=== PATIENT | female | born 1995 | race Caucasian/White ===

== ENCOUNTER 2022-01-05 06:17 | Inpatient (IN) ==
[2022-01-05] MEDS ORDERED: PITOCIN ONE (06:30)
[2022-01-05] MEDS ORDERED: D5 1/2 NS 1,000 ML 1,000 ML IV ONE (06:31)
[2022-01-05] MEDS ORDERED: BETADINE SOLN ONE (06:31)
[2022-01-05] MEDS ORDERED: D5 LR + PITOCIN 10 UNITS/L 10 UNITS/1,000 ML BAG IV ONE (06:32)
[2022-01-05] MEDS ORDERED: D5 1/2 NS 1,000 mL + PITOCIN 20 UNITS/L IV 20 UNITS/1,000 ML BAG IV ONE (06:33)
--- NOTE | 2022-01-05 06:56 | DR.OB ---
OB Quick Note - Assessment/Plan Assessment/Plan: L&D 01/05/22 at 6:50am S-No complaint. O-Afebrile,VSS [id number] with good LTV, +accel, no decel. CTX=irregular, mild by palpation CVX=2cm/50%/-1/VTX AROM with clear fluid. IUPC and FSE placed. A-IUP at 37 1/7 weeks for induction CHTN +RPR--FTA-RAVI pending P-Begin pitocin induction Anticipate Notify nursery about +RPR
[2022-01-05] MEDS ORDERED: PHENERGAN INJ 25 MG IM PRN ×2 (07:07→13:20)
[2022-01-05] MEDS ORDERED: PITOCIN IVP ONE (07:07)
[2022-01-05] MEDS ORDERED: D5 1/2 NS 1,000 ML 1,000 ML IV SCH (07:07)
[2022-01-05] MEDS ORDERED: NUBAIN INJ 200 MG VIAL MULTIDOSE IVP PRN (07:07)
[2022-01-05] MEDS ORDERED: REGLAN INJ 10 MG VIAL IVP PRN (07:07)
[2022-01-05] MEDS ORDERED: MORPHINE SULFATE INJ 2 MG INJ IVP PRN (07:07)
[2022-01-05] MEDS ORDERED: D5 LR + PITOCIN 10 UNITS/L 10 UNITS/1,000 ML BAG IV PRN (07:07)
[2022-01-05] MEDS ORDERED: STADOL INJ IVP PRN (07:10)
[2022-01-05 07:48] LABS: URIC ACID 3.6 mg/dL (2.6-6.0)
[2022-01-05] MEDS ORDERED: ZOFRAN INJ 4 MG VIAL IVP ONE (09:00)
[2022-01-05] MEDS ORDERED: LR 1,000 ML IV 1,000 ML IV ONE (09:02)
[2022-01-05] MEDS ORDERED: FENTANYL VIAL INJ 100 mcg ONE (09:03)
[2022-01-05] MEDS ORDERED: ZOFRAN INJ 4 MG VIAL ONE (09:03)
[2022-01-05] MEDS ORDERED: NAROPIN 0.2% 400 MG/200 ML BAG 200 ML ONE (09:03)
--- NOTE | 2022-01-05 11:48 | DR.OB ---
OB Quick Note - Assessment/Plan Assessment/Plan: L&D 01/05/22 at 11:45am Pitocin=12mu/min. S-No complaint. s/p epidural. O-Afebrile,VSS [id number] with good LTV, +accel, no decel. CTX=q 1 1/2 to 2 min., about 45-55mmHg CVX=5cm/75%/0/VTX A-IUP at 37 1/7 weeks for induction CHTN P-Cont. pitocin induction Anticipate
[2022-01-05] MEDS ORDERED: REGLAN INJ 10 MG VIAL ONE (12:19)
[2022-01-05] MEDS ORDERED: TYLENOL 500 MG TAB EXTRA STRENGTH PO PRN (12:26)
[2022-01-05] MEDS ORDERED: TYLENOL 500 MG TAB EXTRA STRENGTH PO ONE (12:30)
--- NOTE | 2022-01-05 13:25 | DR.OB ---
OB Quick Note - Assessment/Plan Assessment/Plan: Delivery Note [employer] 01/05/22 at 13:12 Patient complete and pushing. Head delivered by over intact perineum. No nuchal cord. Nose and mouth bulb suctioned. Body delivered over intact perineum. Cord clamped x 2 and cut. handed to attendant. Cord sent for gases. Placenta delivered spontaneously / intact / 3 vessel cord. No CVX / vaginal / perineal tears noted. Viable female infant, VTX/OA, wt=5'10" and 9/9, stable to NBN. Mother stable to RR. XED=407ks.
[2022-01-05] MEDS: D5 1/2 NS 1,000 ML 1,000 ML with PITOCIN 20 UNITS IV SCH ×4 (14:15→23:07)
[2022-01-05] MEDS ORDERED: ADACEL or BOOSTRIX TDaP VACCINE IM ONE ×2 (14:24→22:31)
[2022-01-05] MEDS ORDERED: MILK OF MAGNESIA PO PRN (14:24)
[2022-01-05] MEDS ORDERED: DERMOPLAST PAIN RELIEF SPRAY TOP PRN (14:24)
[2022-01-05] MEDS ORDERED: AMBIEN PO PRN (14:24)
[2022-01-05] MEDS: NORMODYNE TAB 100 MG PO SCH (22:40)
[2022-01-06] MEDS: MOTRIN TAB 800 MG PO PRN ×2 (05:04→15:28)
[2022-01-06 05:06] LABS: HEMATOCRIT 33.8 % (36.0-47.0); HEMOGLOBIN 11.7 g/dL (12.0-16.0)
[2022-01-06] MEDS: D5 1/2 NS 1,000 ML 1,000 ML with PITOCIN 20 UNITS IV SCH ×6 (06:08→14:11)
[2022-01-06] MEDS: NORMODYNE TAB 100 MG PO SCH (08:15)
[2022-01-06] MEDS ORDERED: PRENATAL PLUS PO SCH (09:00)
[2022-01-06 15:47] VITALS: BP 142/79
== END 2022-01-06 16:35 | disposition home or self-care (01) | DRG 807 ==
LOC: LD 06:20 → MED/SURG 14:26
PROVIDERS: ADMIT Specialist; ATTEND Specialist
DX: O24.113 Pre-existing type 2 diabetes mellitus, in pregnancy, third trimester; E11.65 Type 2 diabetes mellitus with hyperglycemia; Z3A.37 37 weeks gestation of pregnancy; Z01.818 Encounter for other preprocedural examination; Z37.0 Single live birth